=== PATIENT | female | born 1990 | race Caucasian/White ===

== ENCOUNTER 2017-06-09 21:20 | Emergency (ER) | payer MEDICAID ==
[2017-06-09] MEDS: predniSONE 20 MG TAB PO (22:11)
[2017-06-09] MEDS: IPRATROPIUM (NEB) 0.5 MG/2.5 ML AMP NEB (22:23)
[2017-06-09] MEDS: ALBUTEROL 0.083% (NEB) 2.5 MG/3 ML AMP NEB (22:23)
== END 2017-06-09 22:55 | disposition home or self-care (01) ==
LOC: FTE 21:20 → E/R 22:55
DX: J45.901 Unspecified asthma with (acute) exacerbation (principal)
CPT/HCPCS: 94664; 99284-25

== ENCOUNTER 2017-09-28 12:03 | Emergency (ER) | payer MEDICAID ==
[2017-09-28] MEDS: IBUPROFEN 800 MG TAB PO (12:49)
== END 2017-09-28 14:25 | disposition home or self-care (01) ==
LOC: FTE 12:03
DX: M79.602 Pain in left arm (principal); M54.2 Cervicalgia; M25.511 Pain in right shoulder; R07.81 Pleurodynia; M25.522 Pain in left elbow; M79.645 Pain in left finger(s); M25.512 Pain in left shoulder
CPT/HCPCS: 71045; 72040; 73030; 73060; 73080-LT; 73140; 81025; 99284-25